=== PATIENT | male | born 1960 | race Caucasian/White ===

== ENCOUNTER → 2020-01-04 12:15 | Outpatient (BNVA) | payer MEDICARE, MEDICAID, SELFPAY | PROVIDERS: Family Provider Nurse Practitioner Family; PCP Family Medicine; Visit Provider Family Medicine | DX: I10 Essential (primary) hypertension (principal); E11.9 Type 2 diabetes mellitus without complications | CPT/HCPCS: 80053; 80061; 85025 ==

== ENCOUNTER → 2020-01-07 16:35 | Outpatient (BNVA) | payer MEDICARE, MEDICAID, SELFPAY | PROVIDERS: Family Provider Nurse Practitioner Family; PCP Family Medicine; Visit Provider Family Medicine | DX: E11.9 Type 2 diabetes mellitus without complications (principal); I10 Essential (primary) hypertension | CPT/HCPCS: 83036; 85025 ==

== ENCOUNTER 2020-07-14 07:08 | Outpatient (CLI) | payer MEDICARE, MEDICAID, SELFPAY ==
--- NOTE | 2020-07-14 07:15 | US_ITS ---
WS: [id number] ULTRASOUND ABDOMEN CLINICAL INFORMATION: ABD PAIN COMPARISON: None. FINDINGS: Liver Size: Normal. Craniocaudal length: 12.4 cm. Echogenicity: Normal. Surface nodularity: None. Mass (size and location): None. Bile ducts Intrahepatic ducts: Normal. Common bile duct diameter: 0.4 cm. Gallbladder Calculi Gallstones: Present Gallbladder sludge: None. Gallbladder wall thickening: None. Pericholecystic fluid: None. Sonographic Lopez sign: Absent. Pancreas Not well visualized Spleen Splenomegaly: None. Craniocaudal length: 10.7 cm. Right kidney: Echogenic Hydronephrosis: None. Size: 9.5 cm x 4.1 cm x 4.4 cm Left kidney: Echogenic Small simple left renal cysts Hydronephrosis: None. Size: 7.5 cm x 3.2 cm x 4.2 cm. Abdominal aorta and IVC Visualized portions are normal. Ascites: Ascites right upper quadrant and left upper quadrant Ventral abdominal wall hernia partially visualized US/US abdomen complete* [id number] IMPRESSION: 1. Technically difficult examination. 2. Normal liver. 3. Gallbladder calculi. Normal common bile duct. 4. Echogenic and atrophic kidneys bilaterally can be seen with medical renal d isease. No hydronephrosis. 5. Ventral abdominal wall hernia partially visualized
== END 2020-07-14 07:09 | disposition home or self-care (01) ==
LOC: RAD 07:12
PROVIDERS: PCP Family Medicine; Visit Provider Internal Medicine
DX: K80.20 Calculus of gallbladder without cholecystitis without obstruction (principal); K43.9 Ventral hernia without obstruction or gangrene; N26.1 Atrophy of kidney (terminal)
CPT/HCPCS: 76700

== ENCOUNTER → 2020-09-29 16:52 | Outpatient (BNVA) | payer MEDICARE, MEDICAID, SELFPAY | PROVIDERS: PCP Nurse Practitioner; Visit Provider Nurse Practitioner | DX: R06.02 Shortness of breath (principal) | CPT/HCPCS: 71046 ==

== ENCOUNTER 2020-11-17 15:34 | Outpatient (CLI) | payer MEDICARE, MEDICAID, SELFPAY ==
--- NOTE | 2020-11-17 15:45 | USCV_ITS ---
Santana Hatfield Age: 60 Gender: M : 1960 Exam Date: 11/17/2020 16:06 Ordering Phys: Agustina Akers MD ([email or web address]) Technologist: Yu Welch Exam Location: [facility] – [place] Indication: personal history of other circulatory BP: 120 / 68 HR: 70 Rhythm: Sinus Technical Quality: Adequate MEASUREMENTS (Male / Female) Normal Values 2D ECHO LV Diastolic Diameter PLAX 4.8 cm 4.2 - 5.9 / 3.9 - 5.3 cm LV Systolic Diameter PLAX 4.6 cm IVS Diastolic Thickness 1.4 cm 0.6 - 1.0 / 0.6 - 0.9 cm IVS Systolic Thickness 1.8 cm LVPW Diastolic Thickness 1.1 cm 0.6 - 1.0 / 0.6 - 0.9 cm LVPW Systolic Thickness 1.1 cm RV Chamber Size 4.0 cm LVOT Diameter 2.0 cm LV Ejection Fraction 2D Teich 11.1 % LV Ejection Fraction MOD 2C 35.4 % LV Ejection Fraction 2C AL 40.5 % LA Diameter 3.4 cm LA Width 3.6 cm LA Height 4.8 cm RA Width 4.1 cm RA Height 5.0 cm Aorta at Sinotubular Diameter 2.4 cm M-MODE LV Diastolic Diameter MM 4.6 cm 4.2 - 5.9 / 3.9 - 5.3 cm LV Systolic Diameter MM 3.9 cm LV Ejection Fraction MM Teich 32.8 % IVS Diastolic Thickness MM 1.6 cm 0.6 - 1.0 / 0.6 - 0.9 cm IVS Systolic Thickness MM 1.5 cm LVPW Diastolic Thickness MM 1.3 cm 0.6 - 1.0 / 0.6 - 0.9 cm LVPW Systolic Thickness MM 1.8 cm Aortic Annulus Diameter 2.5 cm LA Ao Ratio MM 1.3 MV E Point Septal Separation 0.8 cm DOPPLER AV Peak Velocity 138.0 cm/s LVOT Peak Velocity 78.0 cm/s AV Area Cont Eq vti 1.6 cm squared AV Area Cont Eq pk 1.8 cm squared MV Area PHT 4.1 cm squared Mitral E to A Ratio 2.1 MV E' Velocity 57.0 cm/s Mitral E to MV E' Ratio 21.4 Mitral E to LV E' Lateral Ratio 20.6 Mitral E to LV E' Septal Ratio 22.3 TR Peak Velocity 274.3 cm/s TR Peak Gradient 30.1 mmHg TV Peak E Velocity 77.0 cm/s Right Atrial Pressure 3.0 mmHg Pulmonary Artery Systolic Pressu 33.1 mmHg PV Peak Velocity 88.0 cm/s RV Acceleration Time 0.0 s RV Ejection Time 0.3 s RV AcT/ET 0.1 FINDINGS Left Ventricle Mildly increased left ventricular cavity size. Moderately decreased left ventricular systolic function. Global left ventricular hypokinesis. Left ventricular ejection fraction is estimated at 40 %. Grade III/IV diastolic dysfunction (restrictive filling pattern). There appeared to be echogenic mass sitting in the upper segment of left ventricle most likely it appeared to be calcified structure versus artifact. Right Ventricle The right ventricle is normal in size and function. Right Atrium The right atrium is normal in size. Left Atrium The left atrium is normal in size. Mitral Valve Moderately thickened mitral valve. No mitral valve stenosis. Moderate mitral valve regurgitation. Aortic Valve Severe aortic valve calcification. Moderate aortic valve stenosis, mean gradient 4.9 mmHg, SUSSY 1.6 cm squared. No aortic valve regurgitation. Tricuspid Valve No tricuspid valve stenosis. Trace to mild tricuspid valve regurgitation. Pulmonic Valve Structurally normal pulmonic valve without significant stenosis. There is no pulmonic regurgitation. Pericardium Normal pericardium without effusion. Aorta Normal ascending aorta dimension. CONCLUSIONS 1-Mildly increased left ventricular cavity size. Moderately decreased left ventricular systolic function. Global left ventricular hypokinesis. Left ventricular ejection fraction is estimated at 40 %. Grade III/IV diastolic dysfunction (restrictive filling pattern). There appeared to be echogenic mass sitting in the upper segment of left ventricle most likely it appeared to be calcified structure versus artifact. 2-Severe aortic valve calcification. Moderate aortic valve stenosis, mean gradient 4.9 mmHg, SUSSY 1.6 cm squared. No aortic valve regurgitation. 3-Moderately thickened mitral valve. No mitral valve stenosis. Moderate mitral valve regurgitation. 4-There is no pericardial effusion. 5-Pulmonary artery systolic pressure is within normal limits. 6-Right atrial pressure is around 5 mm of mercury. 7-There are no prior echocardiogram studies to compare. Agustina Akers MD (Electronically Signed) Final Date: 03 Dec 2020 18:23 S
== END 2020-11-17 15:35 | disposition home or self-care (01) ==
LOC: RAD 15:38
PROVIDERS: PCP Nurse Practitioner; Visit Provider Internal Medicine Cardiovascular Disease
DX: Z86.79 Personal history of other diseases of the circulatory system (principal); R06.02 Shortness of breath; I08.0 Rheumatic disorders of both mitral and aortic valves
CPT/HCPCS: 93306